=== PATIENT | female | born 1995 | race Caucasian/White ===

== ENCOUNTER 2024-04-09 08:38 | Emergency (ER) | payer OTHER ==
[~2024-04-09] VITALS: Ht 167.6 cm; Wt 75.0 kg
[2024-04-09 08:42] VITALS: BP 124/78; PULSE 105; O2SAT 98; O2SAT 99
[2024-04-09] MEDS ORDERED: AMOX-494 MT (09:39)
[2024-04-09 09:45] VITALS: RESP 16
[2024-04-09 10:01] VITALS: TEMP 98.4
[2024-04-09] MEDS: ACETAMINOPHEN 500MG TABLET PO NR (10:01)
== END 2024-04-09 10:08 | disposition home or self-care (01) ==
LOC: ER 08:38
DX: J02.0 Streptococcal pharyngitis (principal)
CPT/HCPCS: 87430; 99283